=== PATIENT | female | born 1975 | race Caucasian/White ===

== ENCOUNTER → 2020-11-29 | Outpatient (REF) | payer BC ==
[2020-11-29 18:33] LABS: BASO % 0.4 % (0.0-1.0); EOS # 0.1 10^3/uL (0.0-0.5); EOS % 1.9 % (0.0-3.0); HEMATOCRIT 39.3 % (36.0-47.0); HEMOGLOBIN 12.7 g/dl (12.0-15.5); LYMPH # 1.7 10^3/uL (1.5-5.0); LYMPH % 32.3 % (24.0-44.0); MEAN CORPUSCULAR HEMOGLOBIN 30.5 pg (27.0-33.0); MEAN CORPUSCULAR HGB CONC 32.3 g/dl (32.0-36.5); MEAN CORPUSCULAR VOLUME 94.5 fl (80.0-96.0); MONO # 0.3 10^3/uL (0.0-0.8); MONO % 6.2 % (0.0-5.0); NEUTROPHILS # 3.1 10^3/uL (1.5-8.5); PLATELET COUNT, AUTOMATED 184 10^3/uL (150-450); RED BLOOD COUNT 4.16 10^6/uL (4.00-5.40); WHITE BLOOD COUNT 5.3 10^3/uL (4.0-10.0)
[2020-11-29 18:45] LABS: ALT/SGPT 18 U/L (12-78); BILIRUBIN,TOTAL 0.4 MG/DL (0.2-1.0); BLOOD UREA NITROGEN 11 MG/DL (7-18); CARBON DIOXIDE LEVEL 25 MEQ/L (21-32); CHLORIDE LEVEL 107 MEQ/L (98-107); CHOLESTEROL LEVEL 174 MG/DL (<200); CREATININE FOR GFR 0.87 MG/DL (0.55-1.30); GLOMERULAR FILTRATION RATE > 60.0 (>58); GLUCOSE, FASTING 88 MG/DL (70-100); HDL CHOLESTEROL 50 MG/DL (>40); LDL CHOLESTEROL 112 MG/DL (<100); NON-HDL-C 124 MG/DL; SODIUM LEVEL 139 MEQ/L (136-145); TOTAL PROTEIN 6.7 GM/DL (6.4-8.2); TRIGLYCERIDES LEVEL 62 MG/DL (<150)
== END ==
LOC: M SFHCADAM 07:56
PROVIDERS: ATTEND Family Medicine
DX: Z00.00 Encounter for general adult medical examination without abnormal findings (principal)

== ENCOUNTER → 2021-05-12 | Outpatient (CLI) | payer BC ==
--- NOTE | 2021-05-12 08:46 | REP ---
INDICATION: NECK PAIN, CERVICAL RADICULAR PAIN, TRAPEZIUS MUSCLE SPASM. COMPARISON: None. TECHNIQUE: Seven views of the cervical spine are provided including flexion extension lateral views. FINDINGS: Lateral views done in flexion, extension, and neutral position show preserved vertebral body heights and normal alignment. No subluxation or instability is seen. Disc spaces are maintained. Prevertebral soft tissues are unremarkable. Open mouth odontoid view is unremarkable. On the AP view there is a mild dextroconvex curvature in the cervical spine and levoconvex curvature in the upper lumbar spine which may reflect a mild scoliosis. Bilateral oblique radiographs demonstrate intact neural foramina bilaterally at each cervical level and normally aligned facets. There is minimal facet hypertrophy left more so than right. IMPRESSION: No acute bony abnormality. Minimal facet hypertrophy and dextroconvex curvature visible on the AP radiograph. Otherwise normal. <Electronically signed by Bennett Espinoza > 05/12/21 [id number]
== END ==
LOC: M ADAMS 08:05
PROVIDERS: ATTEND Anesthesiology Pain Medicine
DX: M54.12 Radiculopathy, cervical region (principal); M62.838 Other muscle spasm

== ENCOUNTER → 2021-07-18 | Outpatient (CLI) | payer BC ==
--- NOTE | 2021-07-18 18:30 | REPVR ---
PROCEDURE INFORMATION: Exam: MR Cervical Spine Without Contrast Exam date and time: 07/18/2021 12:01 PM Age: 45 years old Clinical indication: Neck pain; Additional info: Radiculopathy, cervical region TECHNIQUE: Imaging protocol: Multiplanar magnetic resonance images of the cervical spine without contrast. COMPARISON: DX SPINE CERVICAL COMPL 05/12/2021 7:46 AM FINDINGS: Cervical vertebral body heights are intact. Cervical lordosis is maintained. The dens is intact. Disc space heights are unremarkable. No abnormal marrow signal. No cord compression, expansion, or abnormal cord signal. Visualized structures of the posterior fossa are unremarkable. Soft tissues are unremarkable. C2-C3: No significant canal or foraminal narrowing. C3-C4: Uncovertebral spurring causes mild left foraminal narrowing. No significant canal narrowing. C4-C5: Uncovertebral spurring and facet hypertrophy cause moderate to severe left foraminal narrowing. No significant canal narrowing. C5-C6: No significant canal or foraminal narrowing. C6-C7: No significant canal or foraminal narrowing. C7-T1: No significant canal or foraminal narrowing. 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 Electronically signed by: Ever Castañeda On 07/18/2021 18:30:05 PM
== END ==
LOC: M PLAIMG 11:08
DX: M54.12 Radiculopathy, cervical region (principal)

== ENCOUNTER → 2022-05-19 | Outpatient (REF) | payer BC ==
[2022-05-19 10:52] LABS: BASO % 0.5 % (0.0-1.0); HEMOGLOBIN 13.7 g/dl (12.0-15.5); LYMPH # 1.8 10^3/uL (1.5-5.0); LYMPH % 19.8 % (24.0-44.0); MEAN CORPUSCULAR HGB CONC 34.3 g/dl (32.0-36.5); MEAN CORPUSCULAR VOLUME 93.5 fl (80.0-96.0); MONO # 0.5 10^3/uL (0.0-0.8); MONO % 5.8 % (2.0-8.0); NEUTROPHILS # 6.5 10^3/uL (1.5-8.5); NEUTROPHILS % 73.6 % (36.0-66.0); PLATELET COUNT, AUTOMATED 241 10^3/uL (150-450); RED BLOOD COUNT 4.28 10^6/uL (4.00-5.40); WHITE BLOOD COUNT 8.9 10^3/uL (4.0-10.0)
[2022-05-19 11:21] LABS: ALT/SGPT 21 U/L (12-78); BILIRUBIN,TOTAL 0.3 MG/DL (0.2-1.0); BLOOD UREA NITROGEN 10 MG/DL (7-18); CALCIUM LEVEL 8.9 MG/DL (8.5-10.1); CARBON DIOXIDE LEVEL 28 MEQ/L (21-32); CHLORIDE LEVEL 107 MEQ/L (98-107); CREATININE FOR GFR 0.73 MG/DL (0.55-1.30); GLOMERULAR FILTRATION RATE > 60.0 (>58); GLUCOSE, FASTING 93 MG/DL (70-100); SODIUM LEVEL 139 MEQ/L (136-145)
== END ==
LOC: M SFHCADAM 08:03
PROVIDERS: ATTEND Family Medicine
DX: K92.1 Melena (principal)

== ENCOUNTER → 2022-06-13 | Outpatient (CLI) | payer BC ==
[~2022-06-13] MED LIST: PROHANCE 279.3MG/ML 15ML VIAL As Ordered ONE
== END ==
LOC: M RAD 14:38
PROVIDERS: ATTEND Family Medicine
DX: Z91.89 Other specified personal risk factors, not elsewhere classified (principal)
CPT/HCPCS: A9576; C8908

== ENCOUNTER → 2022-11-28 | Outpatient (CLI) | payer BC ==
[~2022-11-28] MED LIST changes: +DULO1CAP5 PO; -PROHANCE 279.3MG/ML 15ML VIAL As Ordered ONE; +ZOLP5TAB PO
== END ==
LOC: M LABSMTC 09:14
PROVIDERS: ATTEND Anesthesiology
DX: Z01.812 Encounter for preprocedural laboratory examination (principal); Z11.52 Encounter for screening for COVID-19

== ENCOUNTER → 2022-11-29 | Outpatient (CLI) | payer BC | LOC: M PLALAB 15:44 | PROVIDERS: ATTEND Advanced Practice Midwife | DX: Z12.4 Encounter for screening for malignant neoplasm of cervix (principal); Z80.3 Family history of malignant neoplasm of breast | CPT/HCPCS: 87624; G0123 ==

== ENCOUNTER 2022-12-01 06:50 | Day surgery (SDC) | payer BC ==
[~2022-12-01] VITALS: Ht 167.6 cm; Wt 77.7 kg
[~2022-12-01 06:50] MED LIST changes: +NS 1,000 ML IV ONE
[2022-12-01] MEDS ORDERED: propofoL 200 MG/20 ML VIAL As Ordered ONE (07:41)
[2022-12-01] MEDS ORDERED: LIDOCAINE 2% 100MG/5ML SDV (FOR ANES.) As Ordered ONE (07:42)
[2022-12-01 08:50] VITALS: BP 109/64
== END 2022-12-01 08:55 | disposition home or self-care (01) ==
LOC: M OPP 06:50
PROVIDERS: ATTEND Internal Medicine Gastroenterology
DX: K64.8 Other hemorrhoids (principal); K92.1 Melena; F17.290 Nicotine dependence, other tobacco product, uncomplicated; Z79.1 Long term (current) use of non-steroidal anti-inflammatories (NSAID); Z79.899 Other long term (current) drug therapy; Z88.2 Allergy status to sulfonamides; Z88.5 Allergy status to narcotic agent; Z91.018 Allergy to other foods; Z80.3 Family history of malignant neoplasm of breast

== ENCOUNTER 2022-12-31 19:45 | Emergency (ER) | payer BC ==
[~2022-12-31] VITALS: Ht 167.6 cm; Wt 79.0 kg
[~2022-12-31 19:45] MED LIST changes: -NS 1,000 ML IV ONE
[2022-12-31 19:48] VITALS: BP 125/81
[2022-12-31] MEDS ORDERED: PROPARACAINE 0.5% OPHTH SOL 15ML OU ONE (23:45)
[2022-12-31] MEDS ORDERED: FLUORESCEIN OPHTH 1MG STRIP OU ONE (23:45)
[2023-01-01] MEDS ORDERED: prednisoLONE ACET 1% OPHTH SUSP 5ML OD STA (00:26)
[2023-01-01] MEDS ORDERED: GABAPENTIN 300 MG CAP PO ONE (00:30)
[2023-01-01] MEDS ORDERED: valACYclovir HCL 500 MG TAB PO ONE (00:30)
[2023-01-01] MEDS ORDERED: PRED1SUS30 OD (00:41)
[2023-01-01] MEDS ORDERED: VALA1TAB5 PO (00:41)
[2023-01-01] MEDS ORDERED: GABA-282 PO (00:41)
== END 2023-01-01 01:01 | disposition home or self-care (01) ==
LOC: M ED 19:45
DX: B02.8 Zoster with other complications (principal); H53.141 Visual discomfort, right eye; F17.200 Nicotine dependence, unspecified, uncomplicated; Z88.2 Allergy status to sulfonamides; Z88.6 Allergy status to analgesic agent; Z91.018 Allergy to other foods; Z79.891 Long term (current) use of opiate analgesic; Z79.899 Other long term (current) drug therapy; Z79.52 Long term (current) use of systemic steroids

== ENCOUNTER → 2023-03-13 | Outpatient (REF) | payer BC ==
[~2023-03-13] MED LIST changes: +GABA-282 PO; +PRED1SUS30 OD; +VALA1TAB5 PO
[2023-03-13 14:52] LABS: BASO % 0.5 % (0.0-1.0); EOS % 0.7 % (0.0-3.0); HEMATOCRIT 40.3 % (36.0-47.0); HEMOGLOBIN 13.4 g/dl (12.0-15.5); LYMPH # 1.6 10^3/uL (1.5-5.0); LYMPH % 35.7 % (24.0-44.0); MEAN CORPUSCULAR HEMOGLOBIN 31.6 pg (27.0-33.0); MEAN CORPUSCULAR HGB CONC 33.3 g/dl (32.0-36.5); MONO # 0.5 10^3/uL (0.0-0.8); MONO % 11.9 % (2.0-8.0); NEUTROPHILS # 2.2 10^3/uL (1.5-8.5); NEUTROPHILS % 51.2 % (36.0-66.0); PLATELET COUNT, AUTOMATED 212 10^3/uL (150-450); RED BLOOD COUNT 4.24 10^6/uL (4.00-5.40); WHITE BLOOD COUNT 4.4 10^3/uL (4.0-10.0)
[2023-03-13 14:53] LABS: ALKALINE PHOSPHATASE 67 U/L (46-116); ALT/SGPT 20 U/L (7.0-40); AST/SGOT 18 U/L (<34); BILIRUBIN,TOTAL 0.5 MG/DL (0.3-1.2); BLOOD UREA NITROGEN 10 MG/DL (9-23); CALCIUM LEVEL 9.2 MG/DL (8.5-10.1); CARBON DIOXIDE LEVEL 27 MMOL/L (20-31); CHLORIDE LEVEL 108 MMOL/L (98-107); CREATININE FOR GFR 0.75 MG/DL (0.55-1.30); GLOMERULAR FILTRATION RATE > 60.0 (>58); GLUCOSE, FASTING 83 MG/DL (60-100); POTASSIUM SERUM 3.9 MMOL/L (3.5-5.1); SODIUM LEVEL 138 MMOL/L (136-145); THYROID STIMULATING HORMONE 1.571 uIU/ML (0.55-4.78); TOTAL PROTEIN 6.6 G/DL (5.7-8.2)
[2023-03-13 14:54] LABS: FREE T4 0.96 NG/DL (0.89-1.76)
== END ==
LOC: M SFHCADAM 07:43
PROVIDERS: ATTEND Family Medicine
DX: R19.7 Diarrhea, unspecified (principal)

== ENCOUNTER → 2023-12-04 | Outpatient (REF) | payer BC | LOC: M PLALAB 16:06 | PROVIDERS: ATTEND Advanced Practice Midwife | DX: Z12.4 Encounter for screening for malignant neoplasm of cervix (principal) | CPT/HCPCS: 87624; G0123 ==

== ENCOUNTER → 2024-05-19 | Outpatient (REF) | payer BC ==
[2024-05-19 17:01] LABS: URIC ACID 3.7 MG/DL (3.1-7.8)
[2024-05-19 17:03] LABS: C REACTIVE PROTEIN QUANTITATIV < 0.40 MG/DL (<1.0)
[2024-05-19 17:05] LABS: RHEUMATOID FACTOR QUANT 4.9 IU/ML (<14)
[2024-05-21 15:24] LABS: ANA SCREEN, IFA NEGATIVE (NEGATIVE)
[2024-05-21 23:07] LABS: CYCLIC CITRULLINATED PEPTIDE < 16 UNITS (<20)
[2024-05-23 19:18] LABS: LYME TOTAL ANTIBODY CIA <= 0.90 Index (<=0.90)
[2024-05-23 22:03] LABS: Anaplasma phagocytophilum NOT DETECTED (NOT DETECT); Babesia microti NOT DETECTED (NOT DETECT)
[2024-05-23 22:11] LABS: Ehrlichia chaffeensis NOT DETECTED (NOT DETECT)
== END ==
LOC: M LAB REF 16:06
PROVIDERS: ATTEND Nurse Practitioner Family
DX: M25.80 Other specified joint disorders, unspecified joint (principal)

== ENCOUNTER → 2025-01-29 | Outpatient (REF) | payer BC ==
[~2025-01-29] MED LIST changes: +GABA-1172 PO; -GABA-282 PO
[2025-02-04 15:16] LABS: HPV APTIMA Not Detected (Not Detected)
== END ==
LOC: M SFHCWAGY 09:23
PROVIDERS: ATTEND Advanced Practice Midwife
DX: Z12.4 Encounter for screening for malignant neoplasm of cervix (principal); R87.610 Atypical squamous cells of undetermined significance on cytologic smear of cervix (ASC-US)
CPT/HCPCS: 87624; G0123

== ENCOUNTER → 2025-04-28 | Outpatient (REF) | payer BC ==
[2025-04-28 14:06] LABS: ESTRADIOL 27.2 PG/ML
== END ==
LOC: M LAB REF 13:24
PROVIDERS: ATTEND Nurse Practitioner Family
DX: R53.83 Other fatigue (principal)